=== PATIENT | male | born 1965 | race Hispanic/Latino ===

== ENCOUNTER 2018-12-29 22:03 | Emergency (ER) | payer OTHER ==
[2018-12-29] MEDS ORDERED: DEXAMETHASONE SOD PHOSPHATE 10MG/ML 1ML VIAL ONE (23:25)
[2018-12-29] MEDS ORDERED: KETOROLAC TROMETHAMINE 60 MG/2 ML VIAL ONE (23:25)
[2018-12-29] MEDS ORDERED: HYDROCODONE/ACETAMINOPHEN 10/325 MG TAB ONE (23:26)
== END 2018-12-30 00:34 | disposition home or self-care (01) ==
LOC: EDH 22:03
DX: M54.5 Low back pain (principal)
CPT/HCPCS: 96372 ×2; 99284; J1100; J1885

== ENCOUNTER 2020-03-18 08:36 | Inpatient (IN) | payer OTHER ==
[~2020-03-18] VITALS: Ht 172.7 cm; Wt 102.4 kg
[2020-03-18 09:58] LABS: APPEARANCE,URINE Clear (CLEAR); BILIRUBIN,URINE Negative (NEGATIVE); COLOR,URINE Dark Yellow (YELLOW); GLUCOSE, URINE (UA) >=1000 mg/dL (NEGATIVE); KETONES,URINE >=160 mg/dL (NEGATIVE); LEUKOCYTE ESTERASE ,URINE Negative (NEGATIVE); NITRATE,URINE Negative (NEGATIVE); OCCULT BLOOD,URINE Small (NEGATIVE); PH,URINE 5.5 (5.0-8.0); PROTEIN,URINE POS 1+ mg/dL (NEGATIVE)
[2020-03-18] MEDS ORDERED: ZOSYN 3.375GM+NS 50ML 50 ML IV ONE (09:58)
[2020-03-18] MEDS ORDERED: SODIUM CHLORIDE 0.9% 1000ML 1,000 ML IV ONE (09:58)
[2020-03-18] MEDS ORDERED: ONDANSETRON HCL 4 MG/2 ML VIAL ONE (09:58)
[2020-03-18] MEDS ORDERED: MORPHINE SULFATE 4 MG/1ML SYG ONE ×2 (09:59→12:24)
[2020-03-18 10:04] LABS: BASOPHILS % (AUTO) 0.3 % (0.0-5.0); EOSINOPHILS % (AUTO) 0.1 % (0.0-8.0); HEMATOCRIT 43.3 % (42-54); LYMPHOCYTES % (AUTO) 9.9 % (21.0-51.0); MEAN CORPUSCULAR HEMOGLOBIN 28.9 pg (27.0-33.0); MEAN CORPUSCULAR HGB CONC 33.7 g/dL (32.0-36.0); MEAN CORPUSCULAR VOLUME 85.7 fL (79-99); MONOCYTES % (AUTO) 6.8 % (3.0-13.0); NEUTROPHILS % (AUTO) 82.2 % (40.0-77.0); PLATELET COUNT (AUTO) 251 K/uL (130-400); RED BLOOD CELL COUNT(AUTO) 5.05 MIL/uL (4.50-6.20); RED CELL DISTRIBUTION WIDTH 13.1 % (11.0-15.5)
[2020-03-18 10:13] LABS: CREATININE 0.7 mg/dL (0.5-1.5); POTASSIUM 4.1 mmol/L (3.5-5.1)
[2020-03-18 10:17] LABS: ALBUMIN 3.3 g/dL (3.5-5.0); BILIRUBIN,TOTAL 1.4 mg/dL (0.2-1.0)
[2020-03-18] MEDS ORDERED: IOHEXOL 350 MG/ML 100ML INFUS..BTL IV ONE (10:24)
[2020-03-18 10:32] LABS: BACTERIA,URINE Rare /HPF (None Seen); RBC,URINE 0-1 /HPF (0-1)
[2020-03-18 10:33] LABS: SQUAMOUS EPITHELIAL CELL,UR Rare /HPF (0-2)
[2020-03-18] MEDS ORDERED: LORAZEPAM 2 MG/ML 1 ML VIAL ONE (12:23)
[2020-03-18] MEDS ORDERED: INSULIN HUMULIN R 100 UNIT/ML 3ML ONE (12:24)
[2020-03-18 14:05] LABS: AMPHET/METH SCREEN,URINE NEGATIVE (NEGATIVE); BARBITURATE SCREEN, URINE NEGATIVE (NEGATIVE); BENZODIAZEPINES SCREEN,URINE NEGATIVE (NEGATIVE); CANNABINOID SCREEN,URINE NEGATIVE (NEGATIVE); COCAINE SCREEN,URINE NEGATIVE (NEGATIVE); OPIATE SCREEN,URINE NEGATIVE (NEGATIVE); PHENCYCLIDINE SCREEN,URINE NEGATIVE (NEGATIVE)
[2020-03-18] MEDS ORDERED: ATOR10TA69 PO (16:03)
[2020-03-18] MEDS ORDERED: METF-910 PO (16:03)
[2020-03-18] MEDS ORDERED: GLUCAGON 1MG KIT 1 MG ML IM PRN (17:00)
[2020-03-18] MEDS ORDERED: DEXTROSE 50%-WATER 50 ML DISP.SYRIN IV PRN (17:00)
[2020-03-18] MEDS: DEXTROSE 5%-LACTATED RINGERS 1,000 ML IV SCH ×2 (17:15→23:55)
[2020-03-18 17:37] LABS: CREATININE 0.8 mg/dL (0.5-1.5); POTASSIUM 3.7 mmol/L (3.5-5.1)
[2020-03-18] MEDS ORDERED: DEXTROSE 5%-LACTATED RINGERS 1,000 ML IV ONE (18:18)
[2020-03-18] MEDS ORDERED: MORPHINE SULFATE 2 MG/ML 1ML SYG ONE (18:24)
[2020-03-18] MEDS ORDERED: LACTATED RINGERS 1000ML 1,000 ML IV ONE (21:58)
[2020-03-18 23:08] LABS: CREATININE 0.7 mg/dL (0.5-1.5); POTASSIUM 3.7 mmol/L (3.5-5.1)
[2020-03-18 23:15] VITALS: BP 120/77
[2020-03-18] MEDS: LACTATED RINGERS 1000ML 1,000 ML IV SCH (23:44)
[2020-03-19] VITALS (24 sets, daily range): BP systolic 114–135; BP diastolic 63–83
[2020-03-19] MEDS: LACTATED RINGERS 1000ML 1,000 ML IV SCH ×3 (00:45→05:45)
[2020-03-19 01:35] LABS: CREATININE 0.7 mg/dL (0.5-1.5); POTASSIUM 3.4 mmol/L (3.5-5.1)
--- NOTE | 2020-03-19 05:50 | NUR ---
PATIENT UPDATE Pt admitted from ER for acute pancreatitis secondary to hypertriglyceridemia at 3.392. Received from ER with ivf of D5LR at 200 cc/hr. Initiated the original order of LR at 200cc/hr which was ordered 24 hrs with Insulin drip for the elevated triglycerides, drip titrated accdg to the scale ordered. Insulin drip now at i unit per hour, pt continues with the LR at 200 cc/hr. Tender on deep palpation on the rlq, pt hasn't asked for any pain med, slept comfortably overnight. Continues with the NPO status as per order. With a low grade fever upon admission at 100 degrees tympanic, latest temp at 99.1. Tachycardic the whole night fr 108 to 120's, voiding freely per urinal, labs closely monitored.
[2020-03-19 05:54] LABS: BASOPHILS % (AUTO) 0.2 % (0.0-5.0); EOSINOPHILS % (AUTO) 1.5 % (0.0-8.0); HEMATOCRIT 38.8 % (42-54); MEAN CORPUSCULAR HEMOGLOBIN 28.4 pg (27.0-33.0); MEAN CORPUSCULAR HGB CONC 32.2 g/dL (32.0-36.0); MEAN CORPUSCULAR VOLUME 88.2 fL (79-99); MONOCYTES % (AUTO) 6.2 % (3.0-13.0); NEUTROPHILS % (AUTO) 80.6 % (40.0-77.0); PLATELET COUNT (AUTO) 213 K/uL (130-400); RED CELL DISTRIBUTION WIDTH 13.1 % (11.0-15.5); WHITE BLOOD COUNT (AUTO) 12.1 K/uL (4.8-10.8)
[2020-03-19 06:27] LABS: ALBUMIN 2.5 g/dL (3.5-5.0); BILIRUBIN,TOTAL 0.6 mg/dL (0.2-1.0); CREATININE 0.7 mg/dL (0.5-1.5); POTASSIUM 3.5 mmol/L (3.5-5.1); TOTAL PROTEIN, SERUM 6.4 g/dL (6.0-8.3)
[2020-03-19] MEDS: DEXTROSE 5%-LACTATED RINGERS 1,000 ML IV SCH (06:35)
--- NOTE | 2020-03-19 07:00 | NUR ---
CONSULT Dr. Watters here on rounds, made aware about the consult related to hypertriglyceridemia. Reviewed labs with MD, with orders noted down. Will continue with the Insulin drip as per DKA protocol- see new orders. Report given to Renetta RUIZ who will assume care of patient this am.
[2020-03-19] MEDS ORDERED: POTASSIUM CHLORIDE 20MEQ/100ML 100 ML IV ONE ×2 (08:07→11:07)
[2020-03-19] MEDS: GEMFIBROZIL 600 MG TABLET PO SCH ×3 (08:08→20:22)
[2020-03-19] MEDS: ENOXAPARIN SODIUM 30 MG/0.3 ML SQ SCH (08:09)
[2020-03-19] MEDS: DEXTROSE 10%-WATER 1,000 ML IV SCH (08:09)
[2020-03-19] MEDS ORDERED: CHLORDIAZEPOXIDE HCL 25 MG CAP PO PRN (08:30)
[2020-03-19] MEDS ORDERED: PHARMACY COMMUNICATION MISC PRN (08:30)
[2020-03-19] MEDS ORDERED: LORAZEPAM 2 MG/ML 1 ML VIAL IVP PRN (08:30)
[2020-03-19] MEDS: THIAMINE HCL 100 MG, FOLIC ACID 1 MG, M.V.I. IV [ADULT] 10 ML in SODIUM CHLORIDE 0.9% 1... IV SCH (08:49)
[2020-03-19 10:05] LABS: CREATININE 0.7 mg/dL (0.5-1.5); POTASSIUM 3.4 mmol/L (3.5-5.1)
--- NOTE | 2020-03-19 13:36 | NUR ---
CHART CHECK COMPLETED. Pt IS A 54 Y.O. MALE ADMITTED SECONDARY TO ACUTE PANCREATITIS. Pt HAS A PAST MEDICAL HISTORY SIGNIFICANT FOR DM,HLD,HERNIATED DISC SX, MORBID OBESITY. Pt CURRENTLY ON REGULAR TEXTURE,THIN LIQUID DIET (CONSTANT CARB). PLEASE REQUEST FORMAL SKILLED SPEECH/SWALLOW EVALUATION IF Pt PRESENTS WITH +S/S OF ASPIRATION SUCH COUGH RESPONSE, THROAT CLEAR, OR WET VOCAL QUALITY DURING P.O. Addendum: 03/19/20 at 1337 by JALEN RESENDEZ, SPT ST Amended: Links added.
[2020-03-19 14:35] LABS: CREATININE 0.7 mg/dL (0.5-1.5); MAGNESIUM 1.8 mg/dL (1.80-2.40); POTASSIUM 4.6 mmol/L (3.5-5.1)
[2020-03-19] MEDS ORDERED: MAGNESIUM 2GM PREMIX 50ML 50 ML IV SCH (17:30)
[2020-03-19 17:39] LABS: CREATININE 0.8 mg/dL (0.5-1.5); POTASSIUM 3.6 mmol/L (3.5-5.1)
[2020-03-19] MEDS: POTASSIUM CHLORIDE 10MEQ/100ML 100 ML IV PRN ×2 (17:58→19:17)
[2020-03-19] MEDS: INSULIN REGULAR, HUMAN 3ML 100 UNIT in SODIUM CHLORIDE 0.9% 99 ML IV PRN ×2 (18:44)
--- NOTE | 2020-03-19 18:55 | NUR ---
DCP CM spoke to pt's daughter discussed dc plans. Pt is independent prior to admission, lives at home with daughter. Denies any equipments/services. Feels safe to go back home, still drives and works, daughter able to assist with transportation and needs as necessary. DC plan to home once stable. CM to cont to follow up. Addendum: 03/19/20 at 1857 by RONAL VARNER LVN CM Amended: Links added.
[2020-03-19] MEDS: MORPHINE SULFATE 2 MG/ML 1ML SYG IVP PRN (19:35)
[2020-03-19] MEDS: ATORVASTATIN CALCIUM 10 MG TABLET PO SCH (20:22)
[2020-03-19] MEDS: DEXTROSE 5 % AND 0.9 % NACL 1,000 ML IV SCH (20:42)
[2020-03-19 21:35] LABS: CREATININE 0.9 mg/dL (0.5-1.5)
[2020-03-20] VITALS (23 sets, daily range): BP systolic 99–138; BP diastolic 51–85
[2020-03-20] MEDS: MORPHINE SULFATE 2 MG/ML 1ML SYG IVP PRN ×4 (02:00→21:27)
[2020-03-20 04:55] LABS: BASOPHILS % (AUTO) 0.2 % (0.0-5.0); EOSINOPHILS % (AUTO) 1.7 % (0.0-8.0); MEAN CORPUSCULAR HEMOGLOBIN 28.2 pg (27.0-33.0); MEAN CORPUSCULAR HGB CONC 31.8 g/dL (32.0-36.0); MEAN CORPUSCULAR VOLUME 88.6 fL (79-99); MONOCYTES % (AUTO) 6.8 % (3.0-13.0); NEUTROPHILS % (AUTO) 76.6 % (40.0-77.0); PLATELET COUNT (AUTO) 226 K/uL (130-400); RED BLOOD CELL COUNT(AUTO) 4.29 MIL/uL (4.50-6.20); RED CELL DISTRIBUTION WIDTH 13.2 % (11.0-15.5); WHITE BLOOD COUNT (AUTO) 11.9 K/uL (4.8-10.8)
[2020-03-20 05:21] LABS: ALBUMIN 2.3 g/dL (3.5-5.0); BILIRUBIN,TOTAL 0.6 mg/dL (0.2-1.0); CREATININE 0.9 mg/dL (0.5-1.5); POTASSIUM 3.8 mmol/L (3.5-5.1); TOTAL PROTEIN, SERUM 7.2 g/dL (6.0-8.3)
[2020-03-20 05:38] LABS: HEMOGLOBIN A1C 9.6 % (4.0-6.0)
[2020-03-20] MEDS: DEXTROSE 10%-WATER 1,000 ML IV SCH (05:55)
[2020-03-20] MEDS: METFORMIN HCL 500 MG TAB.SR.24H PO SCH (08:15)
[2020-03-20] MEDS: POTASSIUM CHLORIDE 10MEQ/100ML 100 ML IV PRN ×3 (08:25→19:52)
[2020-03-20] MEDS: ENOXAPARIN SODIUM 30 MG/0.3 ML SQ SCH (08:28)
[2020-03-20] MEDS: DEXTROSE 5 % AND 0.9 % NACL 1,000 ML IV SCH ×2 (10:27→21:36)
[2020-03-20] MEDS: THIAMINE HCL 100 MG, FOLIC ACID 1 MG, M.V.I. IV [ADULT] 10 ML in SODIUM CHLORIDE 0.9% 1... IV SCH (11:10)
[2020-03-20 16:38] LABS: CREATININE 0.8 mg/dL (0.5-1.5); POTASSIUM 3.6 mmol/L (3.5-5.1)
[2020-03-20] MEDS: GEMFIBROZIL 600 MG TABLET PO SCH (17:13)
--- NOTE | 2020-03-20 19:44 | NUR ---
PATIENT RECEIVED IN BED, AAOX3, NO ACUTE DISTRESS NOTED AT THIS TIME. PATIENT CALM AND COOPERATIVE WITH POC. CURRENTLY WITH D5NS @ 75ML/HR, INSULIN DRIP 3 UNITS/HR WITH GLUCOMETER CHECKS EVERY 2 HRS. BANANA BAG INFUSING AT !00ML/HR/ WILL CONT TO MONITOR CLOSELY. SR TO ST ON TELEMETRY. CALL MAURICIO WITHIN REACH. NO SYMPTOMS OF ALCOHOL WITHDRAW NOTED. Addendum: 03/20/20 at 1947 by JOANNA LEGGETT RN RN Amended: Links added.
[2020-03-20] MEDS: ATORVASTATIN CALCIUM 10 MG TABLET PO SCH (19:55)
[2020-03-21] VITALS (12 sets, daily range): BP systolic 98–129; BP diastolic 57–80
--- NOTE | 2020-03-21 03:21 | NUR ---
PATIENT RESTING COMFORTABLE WITH NO ACUTE DISTRESS NOTED. CONT WITH INSULIN DRIP PER ORDERS. NO ETOH WITHDRAWALS NOTED. WILL CONT TO MONITOR CLOSELY.
[2020-03-21 03:35] LABS: BASOPHILS % (AUTO) 0.3 % (0.0-5.0); EOSINOPHILS % (AUTO) 2.9 % (0.0-8.0); HEMATOCRIT 36.6 % (42-54); LYMPHOCYTES % (AUTO) 14.9 % (21.0-51.0); MEAN CORPUSCULAR HEMOGLOBIN 28.1 pg (27.0-33.0); MEAN CORPUSCULAR HGB CONC 31.7 g/dL (32.0-36.0); MEAN CORPUSCULAR VOLUME 88.6 fL (79-99); MONOCYTES % (AUTO) 8.5 % (3.0-13.0); NEUTROPHILS % (AUTO) 72.6 % (40.0-77.0); PLATELET COUNT (AUTO) 266 K/uL (130-400); RED BLOOD CELL COUNT(AUTO) 4.13 MIL/uL (4.50-6.20); RED CELL DISTRIBUTION WIDTH 13.3 % (11.0-15.5); WHITE BLOOD COUNT (AUTO) 8.6 K/uL (4.8-10.8)
[2020-03-21 04:16] LABS: ALBUMIN 2.1 g/dL (3.5-5.0); BILIRUBIN,TOTAL 0.6 mg/dL (0.2-1.0); CREATININE 0.8 mg/dL (0.5-1.5); POTASSIUM 3.3 mmol/L (3.5-5.1); TOTAL PROTEIN, SERUM 6.6 g/dL (6.0-8.3)
[2020-03-21] MEDS: INSULIN REGULAR, HUMAN 3ML 100 UNIT in SODIUM CHLORIDE 0.9% 99 ML IV PRN ×2 (04:22)
[2020-03-21] MEDS ORDERED: POTASSIUM CHLORIDE 20MEQ/100ML 100 ML IV ONE (04:33)
[2020-03-21] MEDS: POTASSIUM CHLORIDE 10MEQ/100ML 100 ML IV PRN (06:42)
[2020-03-21] MEDS: DEXTROSE 10%-WATER 1,000 ML IV SCH (07:15)
[2020-03-21] MEDS: METFORMIN HCL 500 MG TAB.SR.24H PO SCH (09:15)
[2020-03-21] MEDS: GEMFIBROZIL 600 MG TABLET PO SCH (09:15)
[2020-03-21] MEDS: ENOXAPARIN SODIUM 30 MG/0.3 ML SQ SCH (09:16)
[2020-03-21] MEDS: THIAMINE HCL 100 MG, FOLIC ACID 1 MG, M.V.I. IV [ADULT] 10 ML in SODIUM CHLORIDE 0.9% 1... IV SCH (10:03)
[2020-03-21] MEDS: INSULIN HUMULIN R 100 UNIT/ML 3ML SQ SCH ×3 (11:25→21:00)
[2020-03-21] MEDS: MORPHINE SULFATE 2 MG/ML 1ML SYG IVP PRN (15:53)
[2020-03-21 18:03] LABS: CREATININE 0.8 mg/dL (0.5-1.5); POTASSIUM 3.7 mmol/L (3.5-5.1)
[2020-03-21] MEDS: ATORVASTATIN CALCIUM 40 MG TABLET PO SCH (20:23)
[2020-03-21] MEDS: FENOFIBRATE NANOCRYSTALLIZED 145 MG TAB PO SCH (20:23)
[2020-03-21] MEDS: INSULIN GLARGINE 100 UNITS/ML 10 ML VIAL SQ SCH (20:28)
[2020-03-21] MEDS ORDERED: INSULIN GLARGINE 100 UNITS/ML 10 ML VIAL SQ SCH (21:00)
[2020-03-22] MEDS: MORPHINE SULFATE 2 MG/ML 1ML SYG IVP PRN ×3 (02:33→21:12)
[2020-03-22 03:34] VITALS: BP 116/73
[2020-03-22 05:28] LABS: BASOPHILS % (AUTO) 0.4 % (0.0-5.0); EOSINOPHILS % (AUTO) 2.5 % (0.0-8.0); HEMATOCRIT 38.7 % (42-54); LYMPHOCYTES % (AUTO) 19.8 % (21.0-51.0); MEAN CORPUSCULAR HEMOGLOBIN 27.4 pg (27.0-33.0); MEAN CORPUSCULAR HGB CONC 31.3 g/dL (32.0-36.0); MEAN CORPUSCULAR VOLUME 87.8 fL (79-99); MONOCYTES % (AUTO) 9.3 % (3.0-13.0); NEUTROPHILS % (AUTO) 67.1 % (40.0-77.0); PLATELET COUNT (AUTO) 308 K/uL (130-400); RED BLOOD CELL COUNT(AUTO) 4.41 MIL/uL (4.50-6.20); WHITE BLOOD COUNT (AUTO) 8.1 K/uL (4.8-10.8)
[2020-03-22 06:02] LABS: CREATININE 0.8 mg/dL (0.5-1.5); POTASSIUM 3.6 mmol/L (3.5-5.1)
[2020-03-22] MEDS: INSULIN HUMULIN R 100 UNIT/ML 3ML SQ SCH ×7 (06:40→21:00)
[2020-03-22 08:27] VITALS: BP 107/64
[2020-03-22] MEDS: ENOXAPARIN SODIUM 30 MG/0.3 ML SQ SCH (09:55)
[2020-03-22 11:27] VITALS: BP 109/71
[2020-03-22 11:58] LABS: CHOLESTEROL 307 mg/dL (<200); HDL CHOLESTEROL 32 mg/dL (29-71); LDL DIRECT 183 mg/dL (0-99); TRIGLYCERIDES 378 mg/dL (30-200)
[2020-03-22 16:22] VITALS: BP 101/69
[2020-03-22 19:29] VITALS: BP 116/68
[2020-03-22] MEDS: FENOFIBRATE NANOCRYSTALLIZED 145 MG TAB PO SCH (21:11)
[2020-03-22] MEDS: ATORVASTATIN CALCIUM 40 MG TABLET PO SCH (21:11)
[2020-03-22] MEDS: INSULIN GLARGINE 100 UNITS/ML 10 ML VIAL SQ SCH (21:13)
[2020-03-22 23:40] VITALS: BP 111/80
[2020-03-23 03:48] VITALS: BP 94/61
[2020-03-23] MEDS: INSULIN HUMULIN R 100 UNIT/ML 3ML SQ SCH ×4 (05:37→16:30)
[2020-03-23] MEDS: MORPHINE SULFATE 2 MG/ML 1ML SYG IVP PRN ×3 (06:27→16:30)
[2020-03-23 08:00] VITALS: BP 107/79
[2020-03-23] MEDS: ENOXAPARIN SODIUM 30 MG/0.3 ML SQ SCH (10:08)
[2020-03-23 11:29] VITALS: BP 114/69
--- NOTE | 2020-03-23 15:50 | NUR ---
criteria for discharge The pt. states understand that if he tolerates a carb consistancy diet and is comfortable and demonstrates his ability to give himself insulin, he will be able to go home tonight.
[2020-03-23 16:00] VITALS: BP 120/75
--- NOTE | 2020-03-23 16:38 | NUR ---
Insulin dose. 1330 Since the 0730 scheduled dose of regular insulin was missed, the 1130 sliding scale dose of 2 units was given at 1330. A note was documented
[2020-03-23] MEDS ORDERED: INSULIN HUMULIN R 100 UNIT/ML 3ML SQ SCH (17:00)
--- NOTE | 2020-03-23 18:47 | NUR ---
Insulin teaching The pt was able to return demonstration in administering his own insulin including understanding which insulin in his correct insulin. He was able to demonstrate swabbing the bottle, obtaining the correct unit, preparing the chosen insulin site and giving the med. He then secured the needle and was taught how dispose of the needle. Pt displayed understanding of each step with this RN.
[2020-03-23] MEDS ORDERED: METF-446 PO (19:48)
== END 2020-03-23 20:20 | disposition home or self-care (01) | DRG 440 ==
LOC: EDH 08:36 → EDHIP 12:13 → DAHIP 22:08 → 3DH 03-21 12:11
PROVIDERS: ADMIT Hospitalist; ATTEND Hospitalist
DX: K85.20 Alcohol induced acute pancreatitis without necrosis or infection (principal); E78.1 Pure hyperglyceridemia; E11.65 Type 2 diabetes mellitus with hyperglycemia; E78.5 Hyperlipidemia, unspecified; Z68.36 Body mass index [BMI] 36.0-36.9, adult; E66.01 Morbid (severe) obesity due to excess calories; F10.10 Alcohol abuse, uncomplicated; F17.210 Nicotine dependence, cigarettes, uncomplicated; I10 Essential (primary) hypertension; K76.0 Fatty (change of) liver, not elsewhere classified; Z79.4 Long term (current) use of insulin; Z79.84 Long term (current) use of oral hypoglycemic drugs
CPT/HCPCS: 36415; 74177; 76705; 80048; 80053; 80061; 80305; 81001; 82150; 82948; 83036; 83605; 83690; 83735; 84478; 85025; 93005; 99291; G0378; J1650; J1815; J2060; J2270; J2405; J2543; J3411; J3475; J3480; J3490; J7030; J7042; J7120; Q9967